=== PATIENT | male | born 1960 | race Caucasian/White ===

== ENCOUNTER 2022-01-29 13:56 | Outpatient (CLI) | payer BC | END 2022-01-29 13:57 | disposition home or self-care (01) | LOC: BICRAD 13:56 | PROVIDERS: ATTEND Allergy & Immunology | DX: J45.909 Unspecified asthma, uncomplicated (principal) | CPT/HCPCS: 71046 ==

== ENCOUNTER 2025-11-21 09:38 | Outpatient (CLI) | payer BC | END 2025-11-21 09:39 | disposition home or self-care (01) | LOC: SCSMRI 09:38 | PROVIDERS: ATTEND Internal Medicine Cardiovascular Disease | DX: G45.9 Transient cerebral ischemic attack, unspecified (principal); R90.82 White matter disease, unspecified; I73.9 Peripheral vascular disease, unspecified; I67.82 Cerebral ischemia; J32.4 Chronic pansinusitis; Z98.890 Other specified postprocedural states | CPT/HCPCS: 70551 ==